=== PATIENT | female | born 1970 | race Caucasian/White ===

== ENCOUNTER → 2017-05-25 | Outpatient (CLI) | payer OTHER ==
[~2017-05-25] MED LIST: ALBU.083IS INH; ALBU90OI INH; AMIT75; AMLO10 PO; AMOX500 PO; AMPDEX10CR PO; ASCO250CH PO; AZIT250 PO; Amphetamine Sal15 MG PO; BENZ100A PO; BUME2 PO; BUPR150ER PO; BUPR150T2 PO; CIPR250 PO; CIPR500 PO; CYCL10 PO; DIPATR PO; FAMO20 PO; FERR325 PO; FEXO60; FLUO20 PO; FOLI400 PO; GABA100 PO; GABA300 PO; GLIM2 PO; HYDACE25S PR; HYDACE5; HYDACE5 PO; HYDMOR2 PO; HYDSUL200 PO; IBUP800 PO; LEVSOD100 PO; LEVSOD50; LEVSOD50 PO; LEVSOD75 PO; LIDO700A20 TOP; MELO7.5; METF500; METO10 PO; METPHE5; METR250 PO; MIRT15 PO; Mobic15 MG PO; NAPR550 PO; NAPROXEN; OLME20 PO; OLME20-12. PO; OLME40 PO; OMEP20ER PO; ONDA4 PO; ONDA4ODT MM; ONDA8ODT MM; OXYACE5T PO; OXYC10TA19 PO; OXYC5; PHENA200 PO; POTCHL20ER PO; PRAM.5 PO; PROACE100; PROACE100 PO; PROM25 PO; PSYL5.85P PO; RXDIPATR PO; RXERYTOPTH OP; RXHYDMOR2 PO; RXONDA4ODT MM; RXOXYACE PO; RXPROM25 PO; RXTRAM50 PO; SULTRIDS PO; Silvadene20 GM TOP; THYR60; TRAM50 PO; UNK ALLERGY MED; Ventolin/Prove6.7 GM INH; Zanaflex4 M1; Zantac150 MG PO; Zithromax250 MG PO; Zofran Odt8 MG SL
[2017-05-25 18:23] LABS: Influenza A Negative (NEGATIVE); Influenza B Negative (NEGATIVE)
== END ==
LOC: LAB 16:00
PROVIDERS: Family Medicine
DX: R19.7 Diarrhea, unspecified (principal); R05 Cough
CPT/HCPCS: 87804

== ENCOUNTER 2017-12-19 17:14 | Emergency (ER) | payer OTHER ==
[~2017-12-19] VITALS: Ht 154.9 cm; Wt 81.7 kg
[~2017-12-19 17:14] MED LIST changes: -LIDO700A20 TOP; -Mobic15 MG PO; -OXYC5; -Ventolin/Prove6.7 GM INH; -Zanaflex4 M1
[2017-12-19] MEDS ORDERED: OXYC5 (17:19)
[2017-12-19] MEDS ORDERED: Zanaflex4 M1 (17:20)
[2017-12-19] MEDS ORDERED: LIDO700A20 TOP (17:39)
== END 2017-12-19 18:09 | disposition home or self-care (01) ==
LOC: ER 17:14
DX: S46.012A Strain of muscle(s) and tendon(s) of the rotator cuff of left shoulder, initial encounter (principal); I10 Essential (primary) hypertension; E03.9 Hypothyroidism, unspecified; F32.9 Major depressive disorder, single episode, unspecified; E11.9 Type 2 diabetes mellitus without complications; Z88.1 Allergy status to other antibiotic agents; Z79.899 Other long term (current) drug therapy; X50.0XXA Overexertion from strenuous movement or load, initial encounter
CPT/HCPCS: 99282

== ENCOUNTER → 2018-10-12 | Outpatient (CLI) | payer OTHER ==
[~2018-10-12] MED LIST changes: +LIDO700A20 TOP; +Mobic15 MG PO; +OXYC5; +Ventolin/Prove6.7 GM INH; +Zanaflex4 M1
== END | disposition home or self-care (01) ==
LOC: LAB SHORT 15:43 → LAB SRC 15:43
DX: R10.9 Unspecified abdominal pain (principal); R11.0 Nausea
CPT/HCPCS: 87086

== ENCOUNTER 2019-08-21 06:44 | Day surgery (SDC) | payer OTHER ==
[2019-08-23 14:59] LABS: Performing Lab SYMBIODX; Test Name TISSUE BIOPSY
== END 2019-08-21 22:59 | disposition home or self-care (01) ==
LOC: MOI US 06:44
PROVIDERS: Pathology Clinical Pathology/Laboratory Medicine
DX: R59.0 Localized enlarged lymph nodes (principal); L93.0 Discoid lupus erythematosus
CPT/HCPCS: 38505; 76882; 76942; 88305; A4648

== ENCOUNTER 2020-11-19 20:05 | Emergency (ER) | payer OTHER ==
[~2020-11-19] VITALS: Ht 154.9 cm; Wt 76.7 kg
[2020-11-19 21:05] LABS: BASOPHILS ABSOLUTE AUTO 0.04 K/mm3 (0.00-0.23); BASOPHILS PERCENT AUTO 1 % (0-2); EOSINOPHILS ABSOLUTE AUTO 0.07 K/mm3 (0.00-0.68); EOSINOPHILS PERCENT AUTO 1 % (0-6); Hematocrit 35.6 % (33.0-51.0); Hemoglobin 11.6 g/dL (11.5-16.0); IMMATURE GRAN ABSOLUTE AUTO 0.02 K/mm3 (0.00-0.10); IMMATURE GRAN PERCENT AUTO 0 % (0-1); LYMPHOCYTES ABSOLUTE AUTO 2.47 K/mm3 (0.84-5.20); LYMPHOCYTES PERCENT AUTO 35 % (21-46); MONOCYTES ABSOLUTE AUTO 0.59 K/mm3 (0.16-1.47); MONOCYTES PERCENT AUTO 9 % (4-13); Mean Corpuscular HGB 27.5 pg (26.0-34.0); Mean Corpuscular HGB Conc 32.6 g/dL (31.5-36.5); Mean Corpuscular Volume 84 fL (80-100); Mean Platelet Volume 9.5 fL (9.1-12.4); NEUTROPHILS ABSOLUTE AUTO 3.79 K/mm3 (1.96-9.15); NEUTROPHILS PERCENT AUTO 54 % (41-73); Platelet Count 308 K/mm3 (150-400); RDW Coefficient Variation 13.2 % (11.7-14.2); RDW Standard Deviation 39.9 fL (35.1-46.3); Red Blood Cell Count 4.22 M/mm3 (3.80-5.20); White Blood Cell Count 6.98 K/mm3 (4.00-11.30)
[2020-11-19 21:23] LABS: Alanine Aminotransfer (ALT/SGP 29 U/L (12-78); Albumin, Blood 3.7 g/dL (3.4-5.0); Albumin/Globulin Ratio 0.9 (0.8-1.8); Alk Phos 65 U/L (50-136); Anion Gap 5 mmol/L (6-16); Aspartate Aminotrans (AST/SGOT 15 U/L (12-37); Bilirubin, Total 0.2 mg/dL (0.1-1.0); Blood Urea Nitrogen 17 mg/dL (8-24); Bun/Creatinine Ratio 26.4 (12.0-20.0); CO2, Blood 28 mmol/L (21-32); Chloride, Blood 104 mmol/L (98-108); Creatinine, Blood 0.64 mg/dL (0.40-1.00); Globulin, Blood 4.1 g/dL (2.2-4.0); Glomerular Filtration Rate >60 (60-); Glucose, Blood 100 mg/dL (70-99); Potassium, Blood 4.1 mmol/L (3.5-5.5); Sodium, Blood 137 mmol/L (136-145); Total Protein, Blood 7.8 g/dL (6.4-8.2)
[2020-11-19 23:31] LABS: Source, Urine Clean Catch
[2020-11-19 23:37] LABS: Bilirubin, Urine Neg (Neg); Blood, Urine Neg (Neg); Glucose Qualitative, Urine Neg (Neg); Ketones, Urine Neg (Neg); Leukocyte Esterase, Urine Neg (Neg); Nitrite, Urine Neg (Neg); Protein, Urine Neg (Neg); Specific Gravity, Urine 1.015 (1.003-1.022); Urobilinogen, Urine NORM (Normal); pH, Urine 6.5 (5.0-8.0)
[2020-11-19 23:40] LABS: Appearance, Urine Clear (Clear); Color, Urine Yellow (P-Yellow)
== END 2020-11-20 00:12 | disposition home or self-care (01) ==
LOC: ER 20:05
PROVIDERS: Physician Assistant
DX: M79.10 Myalgia, unspecified site (principal); G89.29 Other chronic pain; Z88.1 Allergy status to other antibiotic agents; Z79.899 Other long term (current) drug therapy
CPT/HCPCS: 36415; 80053; 81003; 83690; 85025; 99285

== ENCOUNTER → 2022-09-17 | Outpatient (CLI) | payer OTHER | END | disposition home or self-care (01) | LOC: LAB SHORT 11:30 → LAB 11:30 | DX: N30.00 Acute cystitis without hematuria (principal) | CPT/HCPCS: 87086 ==

== ENCOUNTER 2023-04-20 15:09 | Emergency (ER) | payer OTHER ==
[~2023-04-20] VITALS: Ht 154.9 cm; Wt 97.5 kg
[2023-04-20 15:42] LABS: BASOPHILS ABSOLUTE AUTO 0.02 K/mm3 (0.00-0.23); BASOPHILS PERCENT AUTO 0 % (0-2); EOSINOPHILS ABSOLUTE AUTO 0.19 K/mm3 (0.00-0.68); EOSINOPHILS PERCENT AUTO 3 % (0-6); Hemoglobin 10.1 g/dL (11.5-16.0); IMMATURE GRAN ABSOLUTE AUTO 0.03 K/mm3 (0.00-0.10); IMMATURE GRAN PERCENT AUTO 1 % (0-1); LYMPHOCYTES ABSOLUTE AUTO 2.25 K/mm3 (0.84-5.20); LYMPHOCYTES PERCENT AUTO 36 % (21-46); MONOCYTES ABSOLUTE AUTO 0.62 K/mm3 (0.16-1.47); MONOCYTES PERCENT AUTO 10 % (4-13); Mean Corpuscular HGB 26.8 pg (26.0-34.0); Mean Corpuscular HGB Conc 32.6 g/dL (31.5-36.5); Mean Corpuscular Volume 82 fL (80-100); Mean Platelet Volume 9.6 fL (9.1-12.4); NEUTROPHILS ABSOLUTE AUTO 3.23 K/mm3 (1.96-9.15); NEUTROPHILS PERCENT AUTO 51 % (41-73); Platelet Count 328 K/mm3 (150-400); RDW Coefficient Variation 14.9 % (11.7-14.2); RDW Standard Deviation 44.6 fL (35.1-46.3); Red Blood Cell Count 3.77 M/mm3 (3.80-5.20); White Blood Cell Count 6.34 K/mm3 (4.00-11.30)
[2023-04-20 16:03] LABS: Source, Urine Clean Catch
[2023-04-20 16:09] LABS: Albumin, Blood 3.2 g/dL (3.4-5.0); Albumin/Globulin Ratio 0.8 (0.8-1.8); Bilirubin, Total 0.3 mg/dL (0.1-1.0); Bun/Creatinine Ratio 17.3 (12.0-20.0); Calcium, Blood 8.7 mg/dL (8.5-10.1); Creatinine, Blood 0.64 mg/dL (0.40-1.00); Potassium, Blood 3.9 mmol/L (3.5-5.5); Total Protein, Blood 7.2 g/dL (6.4-8.2)
[2023-04-20 16:13] LABS: Appearance, Urine Clear (Clear); Bilirubin, Urine Neg (Neg); Blood, Urine Neg (Neg); Color, Urine Yellow (P-Yellow); Glucose Qualitative, Urine Neg (Neg); Ketones, Urine Neg (Neg); Leukocyte Esterase, Urine Neg (Neg); Nitrite, Urine Neg (Neg); Protein, Urine Neg (Neg); Specific Gravity, Urine 1.015 (1.003-1.022); Urobilinogen, Urine NORM (Normal)
[2023-04-20] MEDS ORDERED: Neurontin800 MG PO (16:54)
[2023-04-20] MEDS ORDERED: Phenergan25 M1 PO (16:55)
[2023-04-20] MEDS ORDERED: OXYC10TA19 PO (16:55)
[2023-04-20] MEDS ORDERED: LIDOCAINE1 EACH TOP (16:55)
[2023-04-20 17:39] VITALS: BP 160/102
[2023-04-20 20:24] LABS: Influenza A, PCR NEGATIVE (NEGATIVE); Influenza B, PCR NEGATIVE (NEGATIVE); Resp Syncytial Virus, PCR NEGATIVE (NEGATIVE); SARS-Cov-2 (COVID-19) PCR, MMC NEGATIVE (NEGATIVE)
== END 2023-04-20 20:36 | disposition home or self-care (01) ==
LOC: ER 15:09
PROVIDERS: Emergency Medicine; Student in an Organized Health Care Education/Training Program
DX: M54.50 Low back pain, unspecified (principal); R06.00 Dyspnea, unspecified; M32.9 Systemic lupus erythematosus, unspecified; E03.9 Hypothyroidism, unspecified; Z79.899 Other long term (current) drug therapy; Z79.51 Long term (current) use of inhaled steroids; Z98.890 Other specified postprocedural states
CPT/HCPCS: 0241U; 71046; 80053; 81003; 81025; 83690; 85025; 93005; 93010; 99285-25; A9270

== ENCOUNTER 2023-04-26 14:24 | Emergency (ER) | payer OTHER ==
[~2023-04-26] VITALS: Ht 152.4 cm; Wt 99.8 kg
[~2023-04-26 14:24] MED LIST changes: +LIDOCAINE1 EACH TOP; +Neurontin800 MG PO; +Phenergan25 M1 PO
[2023-04-26 15:08] VITALS: BP 167/107
[2023-04-26] MEDS ORDERED: Cipro500 MG PO (15:12)
[2023-04-26 16:24] LABS: BASOPHILS ABSOLUTE AUTO 0.03 K/mm3 (0.00-0.23); BASOPHILS PERCENT AUTO 0 % (0-2); EOSINOPHILS PERCENT AUTO 1 % (0-6); Hematocrit 36.2 % (33.0-51.0); Hemoglobin 11.8 g/dL (11.5-16.0); IMMATURE GRAN ABSOLUTE AUTO 0.06 K/mm3 (0.00-0.10); IMMATURE GRAN PERCENT AUTO 1 % (0-1); LYMPHOCYTES ABSOLUTE AUTO 1.74 K/mm3 (0.84-5.20); LYMPHOCYTES PERCENT AUTO 22 % (21-46); MONOCYTES ABSOLUTE AUTO 0.47 K/mm3 (0.16-1.47); MONOCYTES PERCENT AUTO 6 % (4-13); Mean Corpuscular HGB 26.7 pg (26.0-34.0); Mean Corpuscular HGB Conc 32.6 g/dL (31.5-36.5); Mean Corpuscular Volume 82 fL (80-100); Mean Platelet Volume 9.1 fL (9.1-12.4); NEUTROPHILS ABSOLUTE AUTO 5.46 K/mm3 (1.96-9.15); NEUTROPHILS PERCENT AUTO 69 % (41-73); Platelet Count 348 K/mm3 (150-400); RDW Coefficient Variation 14.9 % (11.7-14.2); RDW Standard Deviation 44.9 fL (35.1-46.3); Red Blood Cell Count 4.42 M/mm3 (3.80-5.20); White Blood Cell Count 7.86 K/mm3 (4.00-11.30)
[2023-04-26 16:48] LABS: Albumin, Blood 3.5 g/dL (3.4-5.0); Albumin/Globulin Ratio 0.8 (0.8-1.8); Bilirubin, Total 0.4 mg/dL (0.1-1.0); Bun/Creatinine Ratio 12.7 (12.0-20.0); Calcium, Blood 9.2 mg/dL (8.5-10.1); Creatinine, Blood 0.63 mg/dL (0.40-1.00); Globulin, Blood 4.5 g/dL (2.2-4.0); Potassium, Blood 4.2 mmol/L (3.5-5.5)
== END 2023-04-26 18:04 | disposition left against medical advice (07) ==
LOC: ER 14:24
PROVIDERS: Physician Assistant
DX: M54.9 Dorsalgia, unspecified (principal); Z53.29 Procedure and treatment not carried out because of patient's decision for other reasons
CPT/HCPCS: 80053; 83690; 85025; 99281